=== PATIENT | female | born 1965 | race Caucasian/White ===

== ENCOUNTER 2020-11-20 15:45 | Emergency (ER) | payer MEDICAID, SELFPAY ==
--- NOTE | ~2020-11-20 | XR_ITS ---
EXAMINATION: XR ribs RT 2V w CXR 2V EXAM DATE: 11/20/2020 16:13 INDICATION: RT anterior rib pain, heard pop on 11/08/2020 . TECHNIQUE: Frontal projection of the upper right ribs, frontal projection of the lower right ribs, ob lique projection of the right ribs, frontal and lateral chest x-ray(s) for interpretation. Comparison is made to prior examination from 09/23/2015. FINDINGS: There are no displaced acute right rib fractures identified. There is no soft tissue abno rmality seen. Moderate chronic hyperinflation. Chronic left basilar scarring. No confluent consolidat ion, pneumothorax or pleural effusion suspected. Consider educating patient that even if there is a radiographically occult nondisplaced rib fracture, there is no specific treatment other than to refrain from activity that prevents healing. IMPRESSION: No displaced right rib fractures. 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
[2020-11-20 15:50] VITALS: BP 143/87; PULSE 82; RESP 20; TEMP 36.7; O2SAT 97
[2020-11-20] MEDS: KETOROLAC (*BKC) 60 MG/2 ML VIAL 30 MG IM (17:11)
[2020-11-20 17:12] VITALS: BP 109/86; PULSE 76; RESP 20; O2SAT 100
[2020-11-20] MEDS: HYDROcodone/acetaminophen (*CRX) 5-325 MG TABLET 1 TAB PO (17:12)
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
[2020-11-20 18:20] LABS: D Dimer 0.27 ug/mL (<0.48)
[2020-11-20 19:00] VITALS: BP 110/82; PULSE 78; RESP 20; O2SAT 100
== END 2020-11-20 19:00 | disposition home or self-care (01) ==
PROVIDERS: Emergency Medicine Emergency Medical Services; Emergency Provider General Practice
DX: R07.89 Other chest pain (principal); Z87.11 Personal history of peptic ulcer disease
CPT/HCPCS: 36415; 71046; 71100; 85380; 96372; 99283; A9270; J1885

== ENCOUNTER 2021-01-19 12:03 | Emergency (ER) | payer OTHER, MEDICAID, SELFPAY ==
--- NOTE | ~2021-01-19 | XR_ITS ---
EXAMINATION: XR hand LT 2V INDICATION: Left hand pain TECHNIQUE: Two views of the left hand are obtained. COMPARISON: None available FINDINGS: Bone alignment is normal. There is no fracture. 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 IMPRESSION: 1. No acute osseous abnormality. 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
[2021-01-19 12:07] VITALS: BP 124/96; PULSE 99; RESP 17; TEMP 36.4; O2SAT 98
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
== END 2021-01-19 14:18 | disposition home or self-care (01) ==
PROVIDERS: Emergency Provider Emergency Medicine; PCP Internal Medicine
DX: S09.90XA Unspecified injury of head, initial encounter (principal); F17.210 Nicotine dependence, cigarettes, uncomplicated; W20.8XXA Other cause of strike by thrown, projected or falling object, initial encounter
CPT/HCPCS: 73120; 99283

== ENCOUNTER 2024-02-27 19:05 | Emergency (ER) | payer BC, SELFPAY ==
--- NOTE | ~2024-02-27 | XR_ITS ---
EXAMINATION: XR ribs LT 2V w CXR 2V Exam Date/Time: 02/27/2024 19:30 CDT HISTORY: fall SATURDAY, pain IN LEFT LOWER LATERAL RIBS Comparison: 11/20/2020. RESULT: Lines, tubes, and devices: None. Lungs and pleura: Clear. Cardiothymic silhouette: Stable. Other: No acute osseous or upper abdominal finding. IMPRESSION: No acute cardiopulmonary process. No acute osseous finding in the left ribs. Reviewed, dictated and finalized at location K.
[2024-02-27 19:18] VITALS: BP 128/88; PULSE 84; RESP 16; TEMP 36.8; O2SAT 99
--- NOTE | 2024-02-27 21:57 | ED.FALL ---
HPI - Fall General Chief Complaint: Fall Stated Complaint: rib pain, fall Time Seen by Provider: 02/27/24 21:03 Source: patient Mode of arrival: ambulatory Limitations: no limitations History of Present Illness HPI Narrative: This is a 58-year-old female who presents to the ED with chief complaint of a fall that occurred 4 days ago. Reports that she is having increasing pain in the left ribs and thinks she may have broke a rib. Patient reports that she slipped off her porch and landed on the concrete. She fell a couple of feet. denies head injury or LOC. denies shortness of breath, other sided pain or injury. Review of Systems Review of Systems: All systems as dictated in [facility] Past Medical History Medical History Peptic ulcer disease Surgical History Surgical History History of endoscopic gastrointestinal surgery Social History Social History Smoking status: Current every day smoker Gender identity (if verbalized by the patient): Female Exam Narrative: GENERAL: Well-appearing, well-nourished, and in no acute distress. HEAD: Normocephalic, atraumatic. EYES: PERRLA and EOMI. ENT: Nares clear, no rhinorrhea or epistaxis. Mucous membranes moist. Oropharynx without tonsillar hypertrophy exudate or other lesions. NECK: Supple. No adenopathy or masses. CHEST: No respiratory distress. Clear to auscultation. No wheezes rales or rhonchi. Tenderness to the left lateral chest wall to the inferior most ribs. No bruising or crepitus. Breath sounds equal bilaterally HEART: Regular rate and rhythm. No murmur heard. Normal peripheral pulses. ABDOMEN: Soft, nontender, nondistended, normal active bowel sounds. MSK: Normal range of motion. No edema. SKIN: Warm, dry, no rash. NEURO: Alert and oriented x3. No focal deficits. PSYCH: Normal mood and affect. Course Vital Signs Vital signs: Vital Signs Temperature 98.3 F 02/27/24 19:18 Pulse Rate 84 02/27/24 19:18 Respiratory Rate 16 02/27/24 19:18 Blood Pressure 128/88 02/27/24 19:18 Pulse Oximetry 99 02/27/24 19:18 Oxygen Delivery Room Air 02/27/24 19:18 Temperature 98.3 F 02/27/24 19:18 Pulse Rate 87 02/27/24 22:37 Respiratory Rate 15 02/27/24 22:37 Blood Pressure 114/70 02/27/24 22:37 Pulse Oximetry 97 02/27/24 22:37 Oxygen Delivery Room Air 02/27/24 19:18 MDM - Fall MDM Narrative Medical decision making narrative: This is a 58-year-old female who presents to the ED with chief complaint of left-sided chest wall pain following an injury that occurred couple of days ago. She has point tenderness to the left lateral inferior ribs. Chest x-ray with rib series is negative for any acute osseous findings. She does have significant tenderness directly over the ribs so we will treat as a possible occult fracture. Incentive spirometer given. Short course of pain medications given. Pt will be discharged in stable condition. Return precautions given and supportive measures discussed. Pt is understanding and agreeable with plan for discharge and follow-up with PCP. Discharge Plan Discharge Clinical Impression: Rib pain on left side Patient Disposition: Home, Self-Care Condition: Stable Instructions: Antibiotic Form, Rib Fracture (ED) Additional Instructions: your exam and imaging today are reassuring overall. We will treat as a minor rib fracture. Please use incentive spirometry daily. [place] prescribed for breakthrough pain. Take Tylenol and ibuprofen at baseline. If you have any new or worsening symptoms please return to the ER for further evaluation. Prescriptions: New hydrocodone-acetaminophen 5-325 mg tablet 1 tablet PO Q8H PRN (Reason: pain) Qty: 14 0RF No Action acetaminophen [Tylenol Arthritis
[2024-02-27 22:37] VITALS: BP 114/70; PULSE 87; RESP 15; O2SAT 97
== END 2024-02-27 22:39 | disposition home or self-care (01) ==
PROVIDERS: Emergency Provider Physician Assistant
DX: R07.81 Pleurodynia (principal); F17.200 Nicotine dependence, unspecified, uncomplicated; Z87.11 Personal history of peptic ulcer disease; W13.8XXA Fall from, out of or through other building or structure, initial encounter
CPT/HCPCS: 71046; 71100; 99283

== ENCOUNTER 2024-04-05 13:49 | Emergency (ER) | payer MEDICAID, SELFPAY ==
--- NOTE | ~2024-04-05 | XR_ITS ---
EXAMINATION: XR chest 2V DATE: 04/05/2024 15:22 INDICATION: Chest pain TECHNIQUE: PA and lateral views of the chest were obtained. COMPARISON: Chest radiograph dated 02/27/2024 FINDINGS: No change in a small linear bands of discoid atelectasis/scarring at the bilateral costophrenic angle s. No new airspace opacities, pulmonary edema, pleural effusion or pneumothorax. The cardiomediastina l silhouette is normal. Tiny biopsy marker clip in the right breast. Mild thoracic spondylosis. IMPRESSION: 1. Unchanged mild discoid atelectasis/scarring at the bilateral costophrenic angles. No acute cardiop ulmonary disease. 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 IMPRESSION: 1. Unchanged mild discoid atelectasis/scarring at the bilateral costophrenic an gles. No acute cardiopulmonary disease.
[2024-04-05 14:12] VITALS: BP 110/78; PULSE 81; RESP 18; TEMP 36; O2SAT 99
--- NOTE | 2024-04-05 14:23 | ECG_ITS ---
SEE SCANNED COPY FOR CONFIRMED REPORT MTDD
[2024-04-05 14:58] VITALS: BP 110/78; PULSE 78; RESP 14; O2SAT 98
[2024-04-05 15:02] LABS: Basophils Absolute Auto 0.1 K/mm3 (0.0-0.1); Basophils Percent Auto 0.6 % (0.2-1.2); Eosinophils Absolute Auto 0.4 K/mm3 (0-0.3); Eosinophils Percent Auto 3.8 % (0-4.4); Hematocrit 39.6 % (37.0-47.0); Hemoglobin 12.9 g/dL (12.0-15.0); Immature Granulocyte Absolute 0.02 K/mm3 (0.00-0.031); Immature Granulocyte Percent A 0.2 % (0-0.5); Lymphocytes Absolute Auto 3.99 K/mm3 (0.9-3.2); Lymphocytes Percent Auto 41.7 % (18.3-44.2); Mean Corpuscular HGB Conc 32.6 g/dl (32-36); Mean Corpuscular Hemoglobin 30.9 pg (26-34); Mean Platelet Volume 9.3 fl (7.4-10.4); Monocytes Absolute Auto 0.7 K/mm3 (0.1-0.6); Monocytes Percent Auto 7.3 % (2.6-8.5); Neutrophils Absolute Auto 4.4 K/mm3 (1.3-6.7); Neutrophils Percent Auto 46.4 % (45.5-73.1); Platelet Count Result 295 k/mm3 (150-375); Red Blood Count 4.17 M/mm3 (4.2-5.4); Red Cell Distribution Width 13.6 % (11.5-14.5); White Blood Count 9.6 K/mm3 (4.5-10.0)
[2024-04-05] MEDS: KETOROLAC 15 MG/ML VIAL (*BKC) IV PUSH (15:03)
[2024-04-05] MEDS: ACETAMINOPHEN 500 MG TABLET 1000 MG PO (15:03)
[2024-04-05 15:11] LABS: Alanine Aminotransferase 19 U/L (6-35); Albumin Level 4.5 g/dL (3.5-5.1); Alkaline Phosphatase 74 U/L (38-126); Anion Gap 9 mmol/L (4-12); Aspartate Amino Transferase 27 U/L (14-36); Bilirubin,Total 0.3 mg/dL (0.2-1.3); Blood Urea Nitrogen 9 mg/dL (7-17); Calcium 9.5 mg/dL (8.4-10.2); Carbon Dioxide 23 mmol/L (22-30); Chloride 107 mmol/L (98-107); Estimated CRCL calculation 61 ml/min; Estimated Glomerular Filt Rate > 60; Glucose 99 mg/dL (65-110); Potassium 3.8 mmol/L (3.4-5.0); Sodium 139 mmol/L (137-145)
[2024-04-05 15:23] LABS: Troponin I < 0.012 ng/mL (0.000-0.034)
--- NOTE | 2024-04-05 15:27 | ED.GENADULT ---
HPI - General Adult General Chief complaint: Unspecified Stated complaint: left chest wall pain s/p yardwork Time Seen by Provider: 04/05/24 14:40 Source: patient Mode of arrival: ambulatory Limitations: no limitations History of Present Illness HPI narrative: This is a 58 year old female that presents to the ER for left chest wall pain. Ongoing since yesterday. Reports she was doing a lot of yard work yesterday. The pain is worse with movement and palpation of the area, relieved with rest. She has not taken anything for pain. Denies fever, cough, shortness of breath or lower extremity edema. Related Data Allergies Allergy/AdvReac Type Severity Reaction Status Date / Time No Known Allergies Allergy Verified 04/05/24 14:58 Review of Systems Review of Systems: CONSTITUTIONAL: Denies fever CARDIOVASCULAR: Reports chest pain. Denies edema. RESPIRATORY: Denies cough or dyspnea. All systems reviewed & are unremarkable except as noted in HPI and below PMFSH Past Medical History Medical History Peptic ulcer disease Surgical History Surgical History History of endoscopic gastrointestinal surgery Social History Social History Smoking status: Current every day smoker Gender identity (if verbalized by the patient): Female Exam Narrative: GENERAL: Well-appearing, well-nourished, and in no acute distress. HEAD: Normocephalic, atraumatic. EYES: EOMI. NECK: Supple. No JVD CHEST: Clear to auscultation. No respiratory distress. No wheezes rales or rhonchi. Tender to palpation over the left anterior, upper chest wall HEART: Regular rate and rhythm. No murmur heard. Normal peripheral pulses. EXTREMITIES: Normal range of motion. No edema. SKIN: Warm, dry, no rash. NEURO: No focal deficits. Alert and oriented x3. PSYCH: Normal mood and affect Course Course Emergency Course: Patient updated on her workup and agrees with plan of care Vital Signs Vital signs: Vital Signs Temperature 96.8 F L 04/05/24 14:12 Pulse Rate 81 04/05/24 14:12 Respiratory Rate 18 04/05/24 14:12 Blood Pressure 110/78 04/05/24 14:12 Pulse Oximetry 99 04/05/24 14:12 Oxygen Delivery Room Air 04/05/24 14:12 Temperature 96.8 F L 04/05/24 14:12 Pulse Rate 73 04/05/24 15:44 Respiratory Rate 19 04/05/24 15:44 Blood Pressure 136/86 04/05/24 15:44 Pulse Oximetry 100 04/05/24 15:44 Oxygen Delivery Room Air 04/05/24 14:12 Medical Decision Making MDM Narrative Medical decision making narrative: Patient presents to the ER for left chest wall pain. Reports doing some yard work yesterday. Pain worse with movement and palpation of the area. Her vitals are stable. CBC and metabolic panel without concerning findings. EKG without acute ST changes in baseline troponin is negative. Chest x-ray without acute cardiopulmonary abnormality. Patient was updated on her workup and agrees with plan of care. She is to follow up with her PCP. She was given warnings to return to the ER Differential Diagnosis Differential Diagnosis: chest wall pain, costochondritis, muscle strain Vital Signs Vital Signs: Vital Signs Temperature 96.8 F L 04/05/24 14:12 Pulse Rate 81 04/05/24 14:12 Respiratory Rate 18 04/05/24 14:12 Blood Pressure 110/78 04/05/24 14:12 Pulse Oximetry 99 04/05/24 14:12 Oxygen Delivery Room Air 04/05/24 14:12 Temperature 96.8 F L 04/05/24 14:12 Pulse Rate 73 04/05/24 15:44 Respiratory Rate 19 04/05/24 15:44 Blood Pressure 136/86 04/05/24 15:44 Pulse Oximetry 100 04/05/24 15:44 Oxygen Delivery Room Air 04/05/24 14:12 Lab Data Lab results reviewed: Yes I reviewed the patient's lab results. 04/05/24 14:56 04/05/24 14:56 Labs: Lab Results 04/05/24 Range/U
[2024-04-05 15:44] VITALS: BP 136/86; PULSE 73; RESP 19; O2SAT 100
[2024-04-05] MEDS: LIDOCAINE 5% PATCH 1 PATCH TRANSDERM (15:44)
== END 2024-04-05 16:54 | disposition home or self-care (01) ==
PROVIDERS: Emergency Provider Physician Assistant
DX: R07.89 Other chest pain (principal); F17.200 Nicotine dependence, unspecified, uncomplicated; Z87.11 Personal history of peptic ulcer disease
CPT/HCPCS: 36415; 71046; 80053; 84484; 85025; 93005; 96374; 99284; A9270; J1885